=== PATIENT | female | born 1980 | race Caucasian/White ===

== ENCOUNTER 2016-06-09 14:03 | Emergency (ER) | payer SELFPAY ==
[~2016-06-09] VITALS: Ht 121.9 cm; Wt 64.4 kg
[~2016-06-09 14:03] MED LIST: CYCL5TAB PO; HYDR-971 PO
[2016-06-09 16:29] LABS: BASO % 0 % (0-3); EOS % 1 % (0-3); HEMATOCRIT 43.1 % (36.0-47.0); HEMOGLOBIN 14.3 g/dL (12.0-15.5); LYMPH # 0.9 x10^3/uL (1.0-4.8); LYMPH % 7 % (24-48); MEAN CORPUSCULAR HEMOGLOBIN 28 pg (25-35); MEAN CORPUSCULAR HGB CONC 33 g/dL (31-37); MEAN CORPUSCULAR VOLUME 85 fL (79-100); MONO % 5 % (0-9); NEUT % 87 % (31-73); PLATELET COUNT 402 x10^3/uL (140-400); RED BLOOD COUNT 5.06 x10^6/uL (3.50-5.40); RED CELL DISTRIBUTION WIDTH 13.2 % (11.5-14.5); WHITE BLOOD COUNT 12.5 x10^3/uL (4.0-11.0)
[2016-06-09] MEDS ORDERED: IV NORMAL SALINE 1000ML BAG 1,000 ML IV ONE ×2 (16:30→18:45)
[2016-06-09] MEDS ORDERED: LORAZEPAM 2 MG/ML VIAL IV ONE (16:30)
[2016-06-09] MEDS ORDERED: ONDANSETRON PF 4 MG/2 ML VIAL. IV ONE (16:30)
[2016-06-09] MEDS ORDERED: FENTANYL PF 100 MCG/2 ML VIAL. IV ONE ×4 (16:30→20:30)
[2016-06-09 16:38] LABS: OBC FLU VALID
[2016-06-09 16:40] LABS: CALCIUM 9.4 mg/dL (8.5-10.1); GFR 62.4; POTASSIUM 3.7 mmol/L (3.5-5.1)
--- NOTE | 2016-06-09 16:51 | PHYS DOC ---
Past Medical History Past Medical History: Diverticulitis, Diverticulosis, NC, Migraines Past Surgical History: , Tubal ligation, Other Additional Past Surgical Histo: Cyst removal tailbone Alcohol Use: Rarely Drug Use: None Adult General Chief Complaint Chief Complaint: FLU SYMPTOM HPI HPI 35-year-old female with significant diffuse body aches and imaging and I anxiety upon arrival. She states per her words that she hurts everywhere and that her pain is too severe to answer all my questions. She has had multiple children have had a flulike illness that she's been exposed to recently. Patient appears significant feeling distressed upon my initial evaluation. Her heart rate was tachycardic upon arrival in the 120's to 130's. She does complain of some mild lower abdominal pain as well as low back pain. She denies any dysuria or hematuria. She does have some mild nausea but no vomiting. Review of Systems Review of Systems Constitutional: Denies fever or chills [] Eyes: Denies change in visual acuity, redness, or eye pain [] HENT: Denies nasal congestion or sore throat [] Respiratory: Denies cough or shortness of breath [] Cardiovascular: No additional information not addressed in HPI [] GI: Has abdominal pain, has nausea, denies vomiting, denies bloody stools or diarrhea [] : Denies dysuria or hematuria [] Musculoskeletal: Denies back pain or joint pain [] Integument: Denies rash or skin lesions [] Neurologic: Denies headache, focal weakness or sensory changes [] Endocrine: Denies polyuria or polydipsia [] Current Medications Current Medications Current Medications Medications (Trade) Dose Ordered Sig/[facility] Start Time Stop Time Status Last Admin Dose Admin Fentanyl Citrate (Fentanyl 2ml Vial) 50 mcg 1X ONCE 06/09/16 20:30 06/09/16 20:31 DC 06/09/16 20:36 50 MCG Ketorolac Tromethamine 30 mg 30 mg 1X ONCE 06/09/16 17:15 06/09/16 17:16 DC 06/09/16 18:10 30 MG Lorazepam (Ativan) 1 mg 1X ONCE 06/09/16 16:30 06/09/16 16:31 DC 06/09/16 16:24 1 MG Ondansetron HCl (Zofran) 4 mg 1X ONCE 06/09/16 16:30 06/09/16 16:31 DC 06/09/16 16:26 4 MG Sodium Chloride (Iv Sodium Chloride 0.9% 1000ml Bag) 1,000 ml @ 1,000 mls/hr 1X ONCE 06/09/16 18:45 06/09/16 19:44 DC 06/09/16 19:36 1,000 MLS/HR Allergies Allergies Allergies Coded Allergies Type Severity Reaction Last Updated Verified No Known Drug Allergies 01/28/14 No Physical Exam Physical Exam Constitutional: Well developed, well nourished, no acute distress, non-toxic appearance. [] HENT: Normocephalic, atraumatic, bilateral external ears normal, oropharynx moist, no oral exudates, nose normal. [] Eyes: PERRLA, EOMI, conjunctiva normal, no discharge. [] Neck: Normal range of motion, no tenderness, supple, no stridor. [] Cardiovascular:Heart rate regular rhythm, no murmur [] Lungs & Thorax: Bilateral breath sounds clear to auscultation [] Abdomen: Bowel sounds normal, soft, mild lower abdominal tenderness, no masses, no pulsatile masses. [] Skin: Warm, dry, no erythema, no rash. [] Back: No tenderness, no CVA tenderness. [] Extremities: No tenderness, no cyanosis, no clubbing, ROM intact, no edema. [] Neurologic: Alert and oriented X 3, normal motor function, normal sensory function, no focal deficits noted. [] Psychologic: Affect normal, judgement normal, mood normal. [] Current Patient Data Vital Signs Vital Signs Date Time Temp Pulse Resp B/P Pulse Ox O2 Delivery O2 Flow Rate FiO2 06/09/16 19:57 68 96/52 96 Room Air 06/09/16 18:13 17 06/09/16 15:30 99.2 99.2 Lab Values Laboratory Tests Test 06/09/16 15:35 06/09/16 16:25 06/09/16 20:05 06/09/16 20:14 Influenza Type A Antigen Negative (NEGATIVE) Influenza Type B Antigen Negative (NEGATIVE) White Blood Count 12.5x10^3/uL (4.0-11.0) H Red Blood Count 5.06x10^6/uL (3.50-5.40) Hemoglobin 14.3g/dL (12.0-15.5) Hematocrit 43.1% (36.0-47.0) Mean Corpuscular Volume 85fL (79-100) Mean Corpuscular Hemoglobin 28pg (25-35) Mean Corpuscular Hemoglobin Concent 33g/dL (31-37) Red Cell Distribution Width 13.2% (11.5-14.5) Platelet Count 402x10^3/uL (140-400) H Neutrophils (%) (Auto) 87% (31-73) H Lymphocytes (%) (Auto) 7% (24-48) L Monocytes (%) (Auto) 5% (0-9) Eosinophils (%) (Auto) 1% (0-3) Basophils (%) (Auto) 0% (0-3) Neutrophils # (Auto) 10.8x10^3uL (1.8-7.7) H Lymphocytes # (Auto) 0.9x10^3/uL (1.0-4.8) L Monocytes # (Auto) 0.6x10^3/uL (0.0-1.1) Eosinophils # (Auto) 0.1x10^3/uL (0.0-0.7) Basophils # (Auto) 0.0x10^3/uL (0.0-0.2) Segmented Neutrophils % 90% (35-66) H Lymphocytes % 7% (24-48) L Monocytes % 2% (0-10) Eosinophils % 1% (0-5) Platelet Estimate Adequate (ADEQUATE) Sodium Level 141mmol/L (136-145) Potassium Level 3.7mmol/L (3.5-5.1) Chloride Level 105mmol/L (98-107) Carbon Dioxide Level 22mmol/L (21-32) Anion Gap 14 (6-14) Blood Urea Nitrogen 14mg/dL (7-20) Creatinine 1.0mg/dL (0.6-1.0) Estimated GFR (Cockcroft-Gault) 62.4 Glucose Level 94mg/dL (70-99) Calcium Level 9.4mg/dL (8.5-10.1) Urine Collection Type Unknown Urine Color Yellow Urine Clarity Clear Urine pH 7.5 Urine Specific [place] >=1.030 Urine Protein Negativemg/dL (NEG-TRACE) Urine Glucose (UA) Negativemg/dL (NEG) Urine Ketones (Stick) Tracemg/dL (NEG) Urine Blood Negative (NEG) Urine Nitrite Negative (NEG) Urine Bilirubin Small (NEG) Urine Urobilinogen Dipstick 1.0mg/dL (0.2 mg/dL) Urine Leukocyte Esterase Trace (NEG) Urine RBC Occ/HPF (0-2) Urine WBC Occ/HPF (0-4) Urine Squamous Epithelial Cells Mod/LPF Urine Bacteria Few/HPF (0-FEW) Urine Mucus Marked/LPF Urine Test Negative (NEG) POC Urine HCG, Qualitative Hcg negative (Negative) Laboratory Tests 06/09/16 16:25 Laboratory Tests 06/09/16 16:25 EKG EKG [] Radiology/Procedures Radiology/Procedures CT of the abdomen/pelvis demonstrated the following: There is no nephrolithiasis, ureteral calculus or hydroureteronephrosis. The urinary bladder is unremarkable. The heart size is normal. The lung bases are clear. Evaluation of the abdominal viscera is limited in the absence of IV contrast. The liver and spleen are normal in size. The gallbladder is nondistended. The pancreas, and adrenal glands are within normal limits. There is no abdominopelvic ascites. Abdominal aorta is normal in caliber. The bowel loops are normal in caliber. The appendix is normal. No destructive osseus lesions are identified. The uterus is normal in size measuring 8.8 x 5.3 x 5.0 cm. The endometrium is also within normal limits measuring 5 mm in thickness. Cervical nabothian cysts are noted. The right ovary measures 2.8 x 1.6 x 1.5cm. No abnormal right ovarian lesions are identified. Normal blood flow is identified. The left ovary measures 2.5 x 1.8 x 1.7cm. No abnormal left ovarian lesions are identified. Normal blood flow is identified. No pelvic free fluid is identified. Pelvis ultrasound demonstrated the following: The uterus is normal in size measuring 8.8 x 5.3 x 5.0 cm. The endometrium is also within normal limits measuring 5 mm in thickness. Cervical nabothian cysts are noted. The right ovary measures 2.8 x 1.6 x 1.5cm. No abnormal right ovarian lesions are identified. Normal blood flow is identified. The left ovary measures 2.5 x 1.8 x 1.7cm. No abnormal left ovarian lesions are identified. Normal blood flow is identified. No pelvic free fluid is identified. Course & Med Decision Making Course & Med Decision Making Pertinent Labs and Imaging studies reviewed. (See chart for details) This 35-year-old female with significant body aches and lower abdominal pain had a laboratory workup that was unrevealing. Her urinalysis and no signs of infection. Her ABC count was slightly elevated but is nonspecific. There is no obvious source of infection to treat. CT of her abdomen was also negative. Pelvic ultrasound did not reveal any evidence of ovarian torsion or cyst. Her influenza swabs were negative. I discharged her with a course of pain control and Zofran and told her to follow closely with her primary care doctor next several days. Pt felt improved upon discharged and successfully oral challenged while in the department. Dragon Disclaimer Dragon Disclaimer This electronic medical record was generated, in whole or in part, using a voice recognition dictation system. Departure Departure Impression: Primary Impression: Abdominal pain Disposition: HOME, SELF-CARE Admitting Physician: Other Condition: IMPROVED Referrals: TEMITOPE GONZALEZ (PCP) Patient Instructions: Abdominal Pain, [id number] Additional Instructions: Please take your medications as prescribed and continue to drink plenty of fluids. Follow up with your primary doctor in the next 2-3 days for your symptoms. Return to the ER if you develop any worsening of your symptoms. Scripts Ondansetron Hcl (Zofran)4 Mg Tablet4 Mg PO BID PRN NAUSEA/VOMITING #10 TAB Prov:JAVI YADAV DO 06/09/16 Hydrocodone/Apap 5-325 (Gilead 5-325 Tablet)1 Each Tablet1 Tab PO PRN Q6HRS PRN PAIN #10 TAB Prov:JAVI YADAV DO 06/09/16 JAVI YADAV DO Jun 09, 2016 16:51
[2016-06-09 16:57] LABS: % EOS 1 % (0-5); PLT ESTIMATE ADEQUATE (ADEQUATE)
[2016-06-09] MEDS ORDERED: KETOROLAC TROMETHAMINE 30 MG/ML SYRINGE. IV ONE (17:15)
--- NOTE | 2016-06-09 18:23 | RAD ---
PQRS STATEMENT One or more of the following individualized dose reduction techniques were utilized for this study:1.Automated exposure control.2.Adjustment of the mA and/orkVaccording to patient size.3.Use of iterative reconstruction technique CT ABDOMEN/PELVIS Indication: BILATERAL ABDOMINAL FLANK PAIN TODAY, H/O STONES. PREVIOUS 11/11/15. Reason: abdominal pain / Spl. Instructions: / History: Comparison: November 11, 2015 Technique: Multiple contiguous axial images were obtained through the abdomen and pelvis. Coronal reformations were created. Findings: There is no nephrolithiasis, ureteral calculus or hydroureteronephrosis. The urinary bladder is unremarkable. The heart size is normal. The lung bases are clear. Evaluation of the abdominal viscera is limited in the absence of IV contrast. The liver and spleen are normal in size. The gallbladder is nondistended. The pancreas, and adrenal glands are within normal limits. There is no abdominopelvic ascites. Abdominal aorta is normal in caliber. The bowel loops are normal in caliber. The appendix is normal. No destructive osseus lesions are identified. Impression: - Negative for obstructive uropathy. - No ascites or inflammatory mass. - Normal appendix. Electronically signed by: Alejandro Mayer (Jun 09, 2016 18:21:34)
--- NOTE | 2016-06-09 19:38 | RAD ---
Ultrasound Pelvis Indication:PELVIC PAIN EVAL TORSION Reason: r/o ovarian torsion / Spl. Instructions: / History: Technique: Multiple real-time grayscale images were obtained over the pelvis transabdominally and transvaginally. Color Doppler imaging was utilized. Findings: The uterus is normal in size measuring 8.8 x 5.3 x 5.0 cm. The endometrium is also within normal limits measuring 5 mm in thickness. Cervical nabothian cysts are noted. The right ovary measures 2.8 x 1.6 x 1.5cm. No abnormal right ovarian lesions are identified. Normal blood flow is identified. The left ovary measures 2.5 x 1.8 x 1.7cm. No abnormal left ovarian lesions are identified. Normal blood flow is identified. No pelvic free fluid is identified. Impression: - Pelvic sonogram within normal limits. Electronically signed by: Alejandro Mayer (Jun 09, 2016 19:37:02)
[2016-06-09 19:57] VITALS: BP 96/52
[2016-06-09] MEDS ORDERED: ONDA4TAB7 PO (20:10)
[2016-06-09] MEDS ORDERED: HYDR-971 PO (20:10)
[2016-06-09 20:19] LABS: BILIRUBIN,URINE SMALL (NEG); GLUCOSE,URINE NEGATIVE (NEG); NITRITE,URINE NEGATIVE (NEG); PH,URINE 7.5; PROTEIN,URINE NEGATIVE (NEG-TRACE)
[2016-06-09 20:22] LABS: NEG OBC UR NEG; POS OBC UR POS
[2016-06-09 20:26] LABS: BACTERIA,URINE FEW /HPF (0-FEW); RBC,URINE OCC /HPF (0-2); SQUAMOUS EPITHELIAL CELL,UR MOD /LPF; WBC,URINE OCC /HPF (0-4)
== END 2016-06-09 20:50 | disposition home or self-care (01) ==
LOC: ER 14:03
DX: R10.30 Lower abdominal pain, unspecified (principal); M54.5 Low back pain; F41.9 Anxiety disorder, unspecified; G43.909 Migraine, unspecified, not intractable, without status migrainosus; I25.2 Old myocardial infarction; Z98.51 Tubal ligation status
CPT/HCPCS: 36415; 74176; 76830; 76856; 80048; 81001; 81025; 85007; 85027; 87086; 87804; 96361; 96374; 96375; 96376; 99285; J1885; J2060; J2405; J3010; J7030

== ENCOUNTER 2017-04-23 15:13 | Emergency (ER) | payer SELFPAY ==
[2017-04-23 15:52] LABS: ADD MAN DIFF? NO
[2017-04-23 15:58] LABS: BASO # 0.1 x10^3/uL (0.0-0.2); BASO % 1 % (0-3); EOS # 0.2 x10^3/uL (0.0-0.7); EOS % 2 % (0-3); HEMATOCRIT 42.8 % (36.0-47.0); HEMOGLOBIN 14.2 g/dL (12.0-15.5); LYMPH # 4.2 x10^3/uL (1.0-4.8); LYMPH % 28 % (24-48); MEAN CORPUSCULAR HEMOGLOBIN 28 pg (25-35); MEAN CORPUSCULAR HGB CONC 33 g/dL (31-37); MEAN CORPUSCULAR VOLUME 86 fL (79-100); MONO % 7 % (0-9); NEUT # 9.6 x10^3uL (1.8-7.7); NEUT % 63 % (31-73); PLATELET COUNT 449 x10^3/uL (140-400); RED CELL DISTRIBUTION WIDTH 13.7 % (11.5-14.5); WHITE BLOOD COUNT 15.2 x10^3/uL (4.0-11.0)
[2017-04-23 16:05] LABS: ANION GAP 10 (6-14); BLOOD UREA NITROGEN 12 mg/dL (7-20); BUN/CREATININE RATIO 17 (6-20); CALCIUM 9.7 mg/dL (8.5-10.1); CARBON DIOXIDE 26 mmol/L (21-32); CHLORIDE 105 mmol/L (98-107); CREATININE 0.7 mg/dL (0.6-1.0); GFR 93.6; GLUCOSE 91 mg/dL (70-99); POTASSIUM 3.8 mmol/L (3.5-5.1); SODIUM 141 mmol/L (136-145)
[2017-04-23 16:07] LABS: NEG OBC SER NEG; POS OBC SER POS; PREG TEST PT QUAL NEGATIVE (NEG)
[2017-04-23 16:11] LABS: ALBUMIN 3.8 g/dL (3.4-5.0); ALK PHOS 76 U/L (46-116); ALT (SGPT) 25 U/L (14-59); AST (SGOT) 18 U/L (15-37); TOTAL BILIRUBIN 0.1 mg/dL (0.2-1.0); TOTAL PROTEIN 7.8 g/dL (6.4-8.2)
[2017-04-23] MEDS: ONDANSETRON ODT 4 MG TAB.RAPDIS. PO (17:37)
[2017-04-23] MEDS: HYDROcodone/APAP 5/325MG 1 TAB TABLET PO (17:37)
[2017-04-23 17:51] LABS: ETHANOL < 10 mg/dL (0-10)
[2017-04-23 17:58] LABS: AMPHETAMINE/METHAMPHETAMINE NEG (NEG); BARBITURATES NEG (NEG); BENZODIAZEPINES NEG (NEG); CANNABINOIDS POS (NEG); COCAINE NEG (NEG); ETHANOL, URINE NEG (NEG); METHADONE NEG (NEG); OPIATES NEG (NEG); PHENCYCLIDINE NEG (NEG)
[2017-04-23 17:59] LABS: C-REACTIVE PROTEIN 7.9 mg/L (0-3.3)
[2017-04-23] MEDS ORDERED: HYDROmorphone 2 MG/ML VIAL (18:27)
[2017-04-23] MEDS ORDERED: methylPREDNISolone SOD SUCC PF 125 MG/2 ML VIAL. IV (18:30)
[2017-04-23] MEDS ORDERED: ALBUTEROL SULFATE 2.5 MG/3 ML NEBU. NEB (18:30)
[2017-04-23] MEDS: HYDROmorphone 2 MG/ML VIAL IV ×2 (18:34→19:28)
[2017-04-23] MEDS ORDERED: LIDOCAINE 2% 20 ML VIAL. (19:31)
[2017-04-23 19:56] LABS: CSF PROTEIN 26.6 mg/dL (15.0-45.0)
[2017-04-23 19:56] LABS: CSF GLUCOSE 56 mg/dL (37-70)
[2017-04-23 20:04] LABS: CSF CLARITY CLEAR; CSF COLOR COLORLESS; CSF RBC COUNT 0; CSF TUBE # 3; CSF WBC COUNT 0
== END 2017-04-23 21:09 | disposition home or self-care (01) ==
LOC: ER 15:13
DX: R42 Dizziness and giddiness (principal); R51 Headache; R41.3 Other amnesia; M54.2 Cervicalgia; R41.0 Disorientation, unspecified; I25.2 Old myocardial infarction; G43.909 Migraine, unspecified, not intractable, without status migrainosus; F12.10 Cannabis abuse, uncomplicated; F32.9 Major depressive disorder, single episode, unspecified; Z98.51 Tubal ligation status; W10.9XXA Fall (on) (from) unspecified stairs and steps, initial encounter; Y93.89 Activity, other specified; Y92.89 Other specified places as the place of occurrence of the external cause; Y99.8 Other external cause status
CPT/HCPCS: 36415; 62270; 70450; 72125; 80053; 80307; 82945; 84157; 84703; 85025; 86140; 87071; 87075; 87205; 89051; 93005; 96374; 96375; 96376; 99285-25; G0480; J1170; J2060; Q0162

== ENCOUNTER 2020-02-13 08:34 | Emergency (ER) | payer SELFPAY ==
[2017-04-23 18:30] VITALS: BP 133/66
[~2020-02-13 08:34] MED LIST changes: +HYDR-3164 PO; -HYDR-971 PO; +ONDA4TAB7 PO
== END 2020-02-13 08:50 | disposition left against medical advice (07) ==
LOC: ER 08:34
DX: M54.5 Low back pain (principal); Z53.21 Procedure and treatment not carried out due to patient leaving prior to being seen by health care provider

== ENCOUNTER 2021-08-29 09:05 | Emergency (ER) | payer MEDICAID ==
[~2021-08-29] VITALS: Ht 162.6 cm; Wt 82.2 kg
[2021-08-29] MEDS ORDERED: ASPIRIN 325 MG TABLET PO ONE (09:30)
[2021-08-29 09:40] LABS: BASO # 0.1 x10^3/uL (0.0-0.2); BASO % 1 % (0-3); EOS # 0.1 x10^3/uL (0.0-0.7); EOS % 1 % (0-3); HEMATOCRIT 42.8 % (36.0-47.0); HEMOGLOBIN 14.6 g/dL (12.0-15.5); LYMPH # 2.1 x10^3/uL (1.0-4.8); LYMPH % 27 % (24-48); MEAN CORPUSCULAR HEMOGLOBIN 28 pg (25-35); MEAN CORPUSCULAR HGB CONC 34 g/dL (31-37); MEAN CORPUSCULAR VOLUME 84 fL (79-100); MONO # 0.9 x10^3/uL (0.0-1.1); MONO % 11 % (0-9); NEUT # 4.6 x10^3/uL (1.8-7.7); NEUT % 60 % (31-73); PLATELET COUNT 393 x10^3/uL (140-400); RED BLOOD COUNT 5.12 x10^6/uL (3.50-5.40); RED CELL DISTRIBUTION WIDTH 13.8 % (11.5-14.5); WHITE BLOOD COUNT 7.7 x10^3/uL (4.0-11.0)
--- NOTE | 2021-08-29 09:45 | RAD ---
AP chest. HISTORY: Chest pain AP view was taken of the chest. Heart is normal in size. Mediastinum is not widened. There is no conf luent infiltrate. There is slight density at the right costophrenic angle a small effusion is possibl e. PA and lateral views could be of benefit. IMPRESSION: 1. Possible small right pleural effusion. PA and lateral views could be of benefit. Electronically signed by: Petey Thompson MD (08/29/2021 9:43 AM) [id number]
[2021-08-29 09:55] LABS: CALCIUM 9.3 mg/dL (8.5-10.1); CREATININE 1.1 mg/dL (0.6-1.0); GFR 54.5; POTASSIUM 3.8 mmol/L (3.5-5.1)
[2021-08-29 09:59] LABS: ALBUMIN 3.9 g/dL (3.4-5.0); TOTAL BILIRUBIN 0.3 mg/dL (0.2-1.0); TOTAL PROTEIN 7.8 g/dL (6.4-8.2)
[2021-08-29 10:13] LABS: AMPHETAMINE/METHAMPHETAMINE NEG (NEG); BARBITURATES NEG (NEG); BENZODIAZEPINES NEG (NEG); CANNABINOIDS POS (NEG); COCAINE NEG (NEG); METHADONE NEG (NEG); OPIATES NEG (NEG); PHENCYCLIDINE NEG (NEG)
--- NOTE | 2021-08-29 10:22 | RAD ---
EXAMINATION: XR CHEST 2V. HISTORY: 40 years Female Reason possible right pleural effusion on AP portable radiograph of the est. Evaluate with PA and lateral views.. . COMPARISON: Same day radiograph portable AP technique . Findings: No right pleural effusion. The lungs are clear. The heart size is normal. There is no effus ion or pneumothorax. The mediastinum and mirna appear unremarkable. Impression: Unremarkable study. Electronically signed by: Ross Corbett MD (08/29/2021 10:20 AM) [id number]
[2021-08-29] MEDS ORDERED: IV NORMAL SALINE 1000ML BAG 1,000 ML IV ONE (10:45)
[2021-08-29] MEDS ORDERED: ONDANSETRON PF 4 MG/2 ML VIAL. IVP ONE (11:00)
[2021-08-29] MEDS ORDERED: KETOROLAC 15 MG/ML VIAL. IVP ONE (11:15)
[2021-08-29] MEDS ORDERED: MORPHINE SULFATE 4 MG/ML INJ. IVP ONE (12:30)
[2021-08-29 13:25] VITALS: BP 108/68
--- NOTE | 2021-08-29 13:26 | PHYS DOC ---
Past Medical History Past Medical History: Diverticulitis, Diverticulosis, ND, Migraines, Seizure Past Surgical History: , Tubal ligation, Other Additional Past Surgical Histo: Cyst removal tailbone Smoking Status: Light Tobacco Smoker Alcohol Use: None Drug Use: None General Adult EDM: Chief Complaint: CHEST PAIN HPI: HPI: Patient is a 40 year old F who presents with muscle pain and weakness. Patient states that she was driving and she felt acutely ill, patient pulled over and called who brought patient into the emergency department. Patient and reports that this is happened many times. Patient is taking only medications for anxiety. Patient states that she has not been drinking very much fluids besides some DrTemi Pepper. In the emergency department patient feels much better. Patient states that she has no other symptoms besides the ones listed above. No fevers, no chills, no diarrhea, no nausea, no vomiting. No pain. Review of Systems: Review of Systems: Constitutional: Denies fever or chills. [] Eyes: Denies change in visual acuity. [] HENT: Denies nasal congestion or sore throat. [] Respiratory: Denies cough or shortness of breath. [] Cardiovascular: Denies chest pain or edema. [] GI: Denies abdominal pain, nausea, vomiting, bloody stools or diarrhea. [] : Denies dysuria. [] Musculoskeletal: Positive myalgias and generalized weakness Integument: Denies rash. [] Neurologic: Denies headache, focal weakness or sensory changes. [] Endocrine: Denies polyuria or polydipsia. [] Lymphatic: Denies swollen glands. [] Psychiatric: Denies depression or anxiety. [] Heart Score: C/O Chest Pain: No Risk Factors: Risk Factors: DM, Current or recent (<one month) smoker, HTN, HLP, family history of CAD, obesity. Risk Scores: Score 0 - 3: 2.5% MACE over next 6 weeks - Discharge Home Score 4 - 6: 20.3% MACE over next 6 weeks - Admit for Clinical Observation Score 7 - 10: 72.7% MACE over next 6 weeks - Early Invasive Strategies Current Medications: Current Medications Medications (Trade) Dose Ordered Sig/[facility] Start Time Stop Time Status Last Admin Dose Admin Aspirin (Eli Aspirin) 325 mg 1X ONCE 08/29/21 09:30 5/11/22 09:31 DC 08/29/21 10:15 325 MG Ketorolac Tromethamine (Toradol 15mg Vial) 15 mg 1X ONCE 08/29/21 11:15 08/29/21 11:18 DC 08/29/21 11:26 15 MG Morphine Sulfate (Morphine Sulfate) 4 mg 1X ONCE 08/29/21 12:30 08/29/21 12:31 DC 08/29/21 12:39 4 MG Ondansetron HCl (Zofran) 4 mg 1X ONCE 08/29/21 11:00 08/29/21 11:01 DC 08/29/21 11:08 4 MG Sodium Chloride 1,000 ml @ 1,000 mls/hr 1X ONCE 08/29/21 10:45 08/29/21 11:44 DC 08/29/21 11:08 1,000 MLS/HR Allergies: Allergies: Allergies Coded Allergies Type Severity Reaction Last Updated Verified No Known Drug Allergies 01/28/14 No Physical Exam: PE: Constitutional: Well developed, well nourished, no acute distress, non-toxic appearance. [] HENT: Normocephalic, atraumatic, bilateral external ears normal, oropharynx moist, no oral exudates, nose normal. [] Eyes: PERRLA, EOMI, conjunctiva normal, no discharge. [] Neck: Normal range of motion, no tenderness, supple, no stridor. [] Cardiovascular:Heart rate regular rhythm, no murmur [] Lungs & Thorax: Bilateral breath sounds clear to auscultation [] Abdomen: Bowel sounds normal, soft, no tenderness, no masses, no pulsatile masses. [] Skin: Warm, dry, no erythema, no rash. [] Back: No tenderness, no CVA tenderness. [] Extremities: No tenderness, no cyanosis, no clubbing, ROM intact, no edema. [] Neurologic: Alert and oriented X 3, normal motor function, normal sensory function, no focal deficits noted. [] Psychologic: Affect normal, judgement normal, mood normal. [] Current Patient Data: Labs: Laboratory Tests Test 08/29/21 09:25 08/29/21 09:50 08/29/21 09:56 08/29/21 12:14 White Blood Count 7.7 x10^3/uL (4.0-11.0) Red Blood Count 5.12 x10^6/uL (3.50-5.40) Hemoglobin 14.6 g/dL (12.0-15.5) Hematocrit 42.8 % (36.0-47.0) Mean Corpuscular Volume 84 fL (79-100) Mean Corpuscular Hemoglobin 28 pg (25-35) Mean Corpuscular Hemoglobin Concent 34 g/dL (31-37) Red Cell Distribution Width 13.8 % (11.5-14.5) Platelet Count 393 x10^3/uL (140-400) Neutrophils (%) (Auto) 60 % (31-73) Lymphocytes (%) (Auto) 27 % (24-48) Monocytes (%) (Auto) 11 % (0-9) H Eosinophils (%) (Auto) 1 % (0-3) Basophils (%) (Auto) 1 % (0-3) Neutrophils # (Auto) 4.6 x10^3/uL (1.8-7.7) Lymphocytes # (Auto) 2.1 x10^3/uL (1.0-4.8) Monocytes # (Auto) 0.9 x10^3/uL (0.0-1.1) Eosinophils # (Auto) 0.1 x10^3/uL (0.0-0.7) Basophils # (Auto) 0.1 x10^3/uL (0.0-0.2) D-Dimer (Eileen) < 0.27 ug/mlFEU Sodium Level 138 mmol/L (136-145) Potassium Level 3.8 mmol/L (3.5-5.1) Chloride Level 103 mmol/L (98-107) Carbon Dioxide Level 18 mmol/L (21-32) L Anion Gap 17 (6-14) H Blood Urea Nitrogen 11 mg/dL (7-20) Creatinine 1.1 mg/dL (0.6-1.0) H Estimated GFR (Cockcroft-Gault) 54.5 BUN/Creatinine Ratio 10 (6-20) Glucose Level 116 mg/dL (70-99) H Calcium Level 9.3 mg/dL (8.5-10.1) Magnesium Level 2.0 mg/dL (1.8-2.4) Total Bilirubin 0.3 mg/dL (0.2-1.0) Aspartate Amino Transferase (AST) 16 U/L (15-37) Alanine Aminotransferase (ALT) 27 U/L (14-59) Alkaline Phosphatase 79 U/L (46-116) Troponin I High Sensitivity 6 ng/L (4-50) 10 ng/L (4-50) DS-Jcs-T-Type Natriuretic Peptide 44 pg/mL (0-124) Total Protein 7.8 g/dL (6.4-8.2) Albumin 3.9 g/dL (3.4-5.0) Albumin/Globulin Ratio 1.0 (1.0-1.7) Lipase 88 U/L (73-393) Thyroid Stimulating Hormone (TSH) 0.863 uIU/mL (0.358-3.74) Urine Opiates Screen Neg (NEG) Urine Methadone Screen Neg (NEG) Urine Barbiturates Neg (NEG) Urine Phencyclidine Screen Neg (NEG) Urine Amphetamine/Methamphetamine Neg (NEG) Urine Benzodiazepines Screen Neg (NEG) Urine Cocaine Screen Neg (NEG) Urine Cannabinoids Screen Pos (NEG) Urine Ethyl Alcohol Neg (NEG) POC Urine HCG, Qualitative Hcg negative (Negative) Laboratory Tests 08/29/21 09:25 Laboratory Tests 08/29/21 09:25 Vital Signs: Vital Signs Date Time Temp Pulse Resp B/P (MAP) Pulse Ox O2 Delivery O2 Flow Rate FiO2 08/29/21 12:39 16 96 Room Air 08/29/21 10:47 90 126/85 (99) 08/29/21 09:10 97.7 97.7 EKG: EKG: Sinus rhythm, no acute abnormalities Radiology/Procedures: Radiology/Procedures: Chest x-ray 2 view within normal limits Impression: Dehydration and muscular spasms Course & Med Decision Making: Course & Med Decision Making Pertinent Labs and Imaging studies reviewed. (See chart for details) Seen and evaluated by myself, 40-year-old female with multiple recurrence of weakness and muscular spasms. Patient weakness and spasms resolved while in the emergency department after receiving 1 L normal saline. Patient also received 15 mg of Toradol and 4 mg of morphine. Labs within normal limits, EKG normal, chest x-ray normal. Labs and findings reviewed with patient. Patient became asymptomatic after saline administration. Patient states that her urine has been very dark. No UTI observed. Recommended patient to follow-up with primary care physician in 3 to 5 days. Patient stated that she would follow-up. Patient asymptomatic at the time of discharge. Patient hemodynamically stable. Patient discharged in stable condition, all questions answered. Patient agreed with the plan of action. Patient given ER precautions. Basil Disclaimer: Basil Disclaimer: This electronic medical record was generated, in whole or in part, using a voice recognition dictation system. Departure Departure Impression: Primary Impression: Dehydration Additional Impression: Muscle spasm Disposition: HOME / SELF CARE / HOMELESS Condition: GOOD Patient Instructions: Dehydration, Adult, [id number] Additional Instructions: Follow-up with your primary care physician in 3 to 5 days Continue to take oral fluids Return to the emergency department if you are having new or recurrent symptoms. BROOK SUNSHINE MD August 29, 2021 13:26
--- NOTE | 2021-08-29 19:28 | EKG ---
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
--- NOTE | 2021-08-29 19:42 | EKG ---
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
== END 2021-08-29 13:32 | disposition home or self-care (01) ==
LOC: ER 09:05
DX: E86.0 Dehydration (principal); M62.838 Other muscle spasm; G43.909 Migraine, unspecified, not intractable, without status migrainosus; I25.2 Old myocardial infarction; Z72.0 Tobacco use
CPT/HCPCS: 36415; 71045; 71046; 80053; 80307; 81025; 83690; 83735; 83880; 84443; 84484; 85025; 85379; 93005; 96361; 96374; 96375; 99285; J1885; J2270; J2405; J7030